=== PATIENT | female | born 1990 | race Caucasian/White ===

== ENCOUNTER 2020-10-25 22:18 | Inpatient (IN) | payer BC ==
[2020-10-25] MEDS: Lactated Ringers 1,000 ML IV SCH ×2 (22:25→23:17)
[2020-10-25] MEDS ORDERED: Lidocaine 1% 50 ML MDV INJECT PRN (22:39)
[2020-10-25] MEDS ORDERED: Sodium Chloride 0.9% 2.5 ML Syringe FLUSH PRN (22:39)
[2020-10-25] MEDS ORDERED: Tranexamic Acid 1,000 MG in Sodium Chloride 0.9% 100 ML IV PRN (22:39)
[2020-10-25] MEDS ORDERED: Nalbuphine 10 MG/1 ML Vial IVPUSH PRN (22:39)
[2020-10-25] MEDS ORDERED: Carboprost Tromethamine 250 MCG/1 ML Amp IM PRN (22:39)
[2020-10-25] MEDS ORDERED: Methylergonovine 0.2 MG/1 ML Amp IM PRN (22:39)
[2020-10-25] MEDS ORDERED: Misoprostol 200 MCG Tab PO PRN (22:39)
[2020-10-25] MEDS ORDERED: Butorphanol 1 MG/ML SDV IVPUSH PRN (22:39)
[2020-10-25] MEDS ORDERED: Sodium Chloride 0.9% 10 ML Syringe FLUSH PRN (22:39)
[2020-10-25] MEDS ORDERED: Water For Irrigation,Sterile 1,000 ML Container IRR PRN (22:39)
[2020-10-25] MEDS ORDERED: Sodium Chloride 0.9% 10 ML SDV IV PRN (22:39)
[2020-10-25] MEDS ORDERED: Oxytocin/0.9 % Sodium Chloride 30 UNIT/500 ML BAG IV SCH (22:45)
[2020-10-25] MEDS ORDERED: Oxytocin/0.9 % Sodium Chloride 30 UNIT/500 ML BAG ONE (23:03)
[2020-10-25] MEDS ORDERED: Bupivicaine/fentaNYL/NS 250 ML ONE (23:11)
[2020-10-25] MEDS ORDERED: Ondansetron 4 MG/2 ML SDV IVPUSH PRN (23:16)
[2020-10-25] MEDS ORDERED: Lidocaine 1% 50 ML MDV ONE (23:35)
--- NOTE | 2020-10-26 00:40 | PCM.PREANE ---
Preanesthetic Assessment - Anesthesia/Transfusion/Family Hx Anesthesia History: No Prior Anesthesia Family History of Anesthesia Reaction: No - Review of Systems General: No Symptoms, Other (Patient feels warm to touch and cheeks duran. States she has just been feeling different all day.) Pulmonary: No Symptoms Cardiovascular: No Symptoms Gastrointestinal: No Symptoms Neurological: No Symptoms Other: Reports: None (Denies any personal or family hx of bleeding or clotting problems) - Physical Assessment ASA Class: 2 Mental Status: Alert & Oriented x3 Airway Class: Mallampati = 3 Dentition: Reports: Normal Dentition ROM/Head Extension: Full - Lab Values: Laboratory Last Values WBC 25.93 K/uL (4.0-11.0) H 10/25/20 22:46 RBC 3.73 M/uL (4.30-5.90) L 10/25/20 22:46 Hgb 11.7 g/dL (12.0-16.0) L 10/25/20 22:46 Hct 34.4 % (36.0-46.0) L 10/25/20 22:46 MCV 92.2 fL (80.0-98.0) 10/25/20 22:46 MCH 31.4 pg (27.0-32.0) 10/25/20 22:46 MCHC 34.0 g/dL (31.0-37.0) 10/25/20 22:46 RDW Std Deviation 41.4 fl (28.0-62.0) 10/25/20 22:46 RDW Coeff of Alo 12 % (11.0-15.0) 10/25/20 22:46 Plt Count 332 K/uL (150-400) 10/25/20 22:46 MPV 10.50 fL (7.40-12.00) 10/25/20 22:46 Nucleated RBC % 0.0 /100WBC 10/25/20 22:46 Nucleated RBCs # 0 K/uL 10/25/20 22:46 Blood Type B POSITIVE 10/25/20 22:55 Antibody Screen NEGATIVE 10/25/20 22:55 - Allergies Allergies/Adverse Reactions: Allergies Allergy/AdvReac Type Severity Reaction Status Date / Time No Known Allergies Allergy Verified 10/25/20 14:22 - Acknowledgements Anesthesia Type Planned: Epidural Pt an Appropriate Candidate for the Planned Anesthesia: Yes Alternatives and Risks of Anesthesia Discussed w Pt/Guardian: Yes Pt/Guardian Understands and Agrees with Anesthesia Plan: Yes PreAnesthesia Questionnaire - HOME MEDS Home Medications: Home Meds Omeprazole Magnesium [Prilosec Otc] 40 mg PO 10/25/20 [History] - CURRENT (IN HOUSE) MEDS Current Meds: Current Medications Butorphanol Tartrate (Stadol) 1 mg IVPUSH Q1H PRN PRN Reason: Pain Carboprost Tromethamine (Hemabate Ds) 250 mcg IM ASDIRECTED PRN PRN Reason: Post Hemorrhage Oxytocin/Sodium Chloride (Oxytocin 30 Unit/500 Ml-Ns) 30 unit in 500 mls @ 999 mls/hr IV TITRATE LYNETTE Tranexamic Acid 1,000 mg/ (Sodium Chloride) 110 mls @ 660 mls/hr IV ONETIME PRN PRN Reason: Bleeding Lactated Ringer's (Ringers, Lactated) 1,000 mls @ 150 mls/hr IV ASDIRECTED [facility] Last Admin: 10/25/20 23:17 Dose: 999 mls/hr Documented by: Lidocaine HCl (Xylocaine 1%) 50 ml INJECT ONETIME PRN PRN Reason: Laceration repair Methylergonovine Maleate (Methergine) 0.2 mg IM ASDIRECTED PRN PRN Reason: Post Hemorrhage Misoprostol (Cytotec) 200 mcg PO ONETIME PRN PRN Reason: Post Hemorrhage Nalbuphine HCl (Nubain) 10 mg IVPUSH Q1H PRN PRN Reason: Pain (severe 7-10) Ondansetron HCl (Zofran) 4 mg IVPUSH Q6H PRN PRN Reason: Nausea/Vomiting Sodium Chloride (Saline Flush) 10 ml FLUSH ASDIRECTED PRN PRN Reason: Keep Vein Open Sodium Chloride (Saline Flush) 2.5 ml FLUSH ASDIRECTED PRN PRN Reason: Keep Vein Open Sodium Chloride (Normal Saline) 10 ml IV ASDIRECTED PRN PRN Reason: IV Use Sterile Water (Sterile Water For Irrigation) 1,000 ml IRR ASDIRECTED PRN PRN Reason: delivery Discontinued Medications Oxytocin/Sodium Chloride (Oxytocin 30 Unit/500 Ml-Ns) Confirm Administered Dose 30 unit in 500 mls @ as directed .ROUTE .STK-MED ONE Stop: 10/25/20 23:04 Fentanyl/Bupivacaine HCl (Fentanyl/Bupivacaine/Ns 2 Mcg-0.125% 250 Ml) Confirm Administered Dose 250 mls @ as directed .ROUTE .STK-MED ONE Stop: 10/25/20 23:12 Lidocaine HCl (Xylocaine 1%) Confirm Administered Dose 50 ml .ROUTE .STK-MED ONE Stop: 10/25/20 23:36
[2020-10-26] MEDS: Lactated Ringers 1,000 ML IV SCH ×2 (02:51→08:35)
[2020-10-26] MEDS ORDERED: Bupivacaine 0.5% 10 ML SDV ONE (04:37)
[2020-10-26] MEDS ORDERED: DEXTROSE 5% IV SCH ×4 (10:00)
[2020-10-26] MEDS ORDERED: SODIUM CHLORIDE 0.9% IV SCH (10:00)
[2020-10-26] MEDS ORDERED: WATER IV SCH ×4 (10:00)
[2020-10-26] MEDS ORDERED: GENTAMICIN IV SCH ×5 (10:00)
[2020-10-26] MEDS: Ampicillin 2 GM in Sodium Chloride 0.9% 100 ML IV SCH ×3 (10:02→22:01)
[2020-10-26] MEDS ORDERED: Misoprostol 200 MCG Tab ONE (11:16)
[2020-10-26] MEDS ORDERED: Acetaminophen 500 MG Tab PO PRN (11:38)
[2020-10-26] MEDS ORDERED: Witch Hazel Medicated Pads 40/Jar TOP PRN (11:38)
[2020-10-26] MEDS ORDERED: Bisacodyl 10 MG Supp RECTAL PRN (11:38)
[2020-10-26] MEDS ORDERED: Benzocaine/Menthol 20%-0.5% Spray 78 GM Cannister TOP PRN (11:38)
[2020-10-26] MEDS ORDERED: Lanolin 100% Cream 7 GM Tube TOP PRN (11:38)
[2020-10-26] MEDS ORDERED: oxyCODONE 5 MG Tab PO PRN (11:38)
[2020-10-26] MEDS ORDERED: GENTAMICIN IV ONE ×2 (11:42)
[2020-10-26] MEDS ORDERED: WATER IV ONE ×2 (11:42)
[2020-10-26] MEDS ORDERED: DEXTROSE 5% IV ONE ×2 (11:42)
--- NOTE | 2020-10-26 11:48 | PCM.DEL ---
L & D Note - General Info Date of Service: 10/26/20 Mother's Due Date: 10/29/20 - Delivery Note Labor: Spontaneous Delivery Outcome: Livebirth Infant Delivery Method: Spontaneous Vaginal Delivery-Single Presentation: Vertex Nuchal Cord: None Anesthesia Type: Epidural Amniotic Fluid Description: Clear Episiotomy Type: None Laceration: 1st Degree Suture type: Vicryl Suture size: 2-0 Placenta: Manual Removal Cord: 3 Vessels Estimated Blood Loss: 700 Resuscitation Needed: No Score 1 min: 9 Score 5 min: 9 Post Delivery Events: Hemorrhage (given 1000mcg misoprostol per rectum, 200mcg methergine IM), Other (see below) (cord avulsion) Delivery Comments (Free Text/Narrative):: Live male infant, En, weight pending - General Info Date of Service: 10/26/20 - Patient Data Weight - Most Recent: 98.883 kg Lab Results Last 24 Hours: Laboratory Results - last 24 hr 10/25/20 10/25/20 Range/Units 22:46 22:55 WBC 25.93 H (4.0-11.0) K/uL RBC 3.73 L (4.30-5.90) M/uL Hgb 11.7 L (12.0-16.0) g/dL Hct 34.4 L (36.0-46.0) % MCV 92.2 (80.0-98.0) fL MCH 31.4 (27.0-32.0) pg MCHC 34.0 (31.0-37.0) g/dL RDW Std Deviation 41.4 (28.0-62.0) fl RDW Coeff of Alo 12 (11.0-15.0) % Plt Count 332 (150-400) K/uL MPV 10.50 (7.40-12.00) fL Nucleated RBC % 0.0 /100WBC Nucleated RBCs # 0 K/uL Blood Type B POSITIVE Antibody Screen NEGATIVE Med Orders - Current: Current Medications Acetaminophen (Tylenol Extra Strength) 1,000 mg PO Q6H PRN PRN Reason: Pain Benzocaine/Menthol (Dermoplast Pain Relief 20%-0.5% [place]) 78 gm TOP ASDIRECTED PRN PRN Reason: Perineal Comfort Measure Bisacodyl (Dulcolax) 10 mg RECTAL ONETIME PRN PRN Reason: Constipation Docusate Sodium (Colace) 100 mg PO BID PRN PRN Reason: Constipation Emollient Ointment (Lansinoh Hpa) 0 gm TOP ASDIRECTED PRN PRN Reason: Sore Nipples Oxytocin/Sodium Chloride (Oxytocin 30 Unit/500 Ml-Ns) 30 unit in 500 mls @ 999 mls/hr IV TITRATE [facility] Last Admin: 10/26/20 11:25 Dose: 999 mls/hr Documented by: Lactated Ringer's (Ringers, Lactated) 1,000 mls @ 150 mls/hr IV ASDIRECTED [facility] Last Admin: 10/26/20 08:35 Dose: 150 mls/hr Documented by: Ampicillin Sodium 2 gm/ Sodium (Chloride) 100 mls @ 200 mls/hr IV Q6H [facility] Stop: 10/27/20 09:31 Last Admin: 10/26/20 10:02 Dose: 200 mls/hr Documented by: Gentamicin Sulfate 495 mg/ (Dextrose/Water) 100 mls @ 200 mls/hr IV ONETIME ONE Stop: 10/26/20 12:10 Ibuprofen (Motrin) 800 mg PO Q8H PRN PRN Reason: Pain Methylergonovine Maleate (Methergine) 0.2 mg IM ASDIRECTED PRN PRN Reason: Post Hemorrhage Misoprostol (Cytotec) 200 mcg PO ONETIME PRN PRN Reason: Post Hemorrhage Ondansetron HCl (Zofran) 4 mg IVPUSH Q6H PRN PRN Reason: Nausea/Vomiting Oxycodone HCl (Oxycodone) 5 mg PO Q2H PRN PRN Reason: Pain Sodium Chloride (Saline Flush) 10 ml FLUSH ASDIRECTED PRN PRN Reason: Keep Vein Open Sodium Chloride (Saline Flush) 2.5 ml FLUSH ASDIRECTED PRN PRN Reason: Keep Vein Open Sodium Chloride (Normal Saline) 10 ml IV ASDIRECTED PRN PRN Reason: IV Use Sterile Water (Sterile Water For Irrigation) 1,000 ml IRR ASDIRECTED PRN PRN Reason: delivery Witch Isatu (Tucks) 1 pad TOP ASDIRECTED PRN PRN Reason: comfort care Discontinued Medications Bupivacaine HCl (Sensorcaine-Mpf 0.5%) Confirm Administered Dose 10 ml .ROUTE .[facility] ONE Stop: 10/26/20 04:38 Butorphanol Tartrate (Stadol) 1 mg IVPUSH Q1H PRN PRN Reason: Pain Carboprost Tromethamine (Hemabate Ds) 250 mcg IM ASDIRECTED PRN PRN Reason: Post Hemorrhage Gentamicin Sulfate (Pharmacy To Dose - Gentamicin) 5 dose .XX ASDIRECTED [facility] Stop: 10/26/20 09:31 Tranexamic Acid 1,000 mg/ (Sodium Chloride) 110 mls @ 660 mls/hr IV ONETIME PRN PRN Reason: Bleeding Oxytocin/Sodium Chloride (Oxytocin 30 Unit/500 Ml-Ns) Confirm Administered Dose 30 unit in 500 mls @ as directed .ROUTE .STK-MED ONE Stop: 10/25/20 23:04 Fentanyl/Bupivacaine HCl (Fentanyl/Bupivacaine/Ns 2 Mcg-0.125% 250 Ml) Confirm Administered Dose 250 mls @ as directed .ROUTE .STK-MED ONE Stop: 10/25/20 23:12 Gentamicin Sulfate 495 mg/ (Dextrose/Water) 112.375 mls @ 224.75 mls/hr IV Q24H LYNETTE Gentamicin Sulfate 495 mg/ (Dextrose/Water) 100 mls @ 200 mls/hr IV Q24H [facility]TE Lidocaine HCl (Xylocaine 1%) 50 ml INJECT ONETIME PRN PRN Reason: Laceration repair Lidocaine HCl (Xylocaine 1%) Confirm Administered Dose 50 ml .ROUTE .STK-MED ONE Stop: 10/25/20 23:36 Misoprostol (Cytotec) Confirm Administered Dose 800 mcg .ROUTE .STK-MED ONE Stop: 10/26/20 11:17 Nalbuphine HCl (Nubain) 10 mg IVPUSH Q1H PRN PRN Reason: Pain (severe 7-10) - Problem List & Annotations (1) Vaginal delivery SNOMED Code(s): 324504275 Code(s): O80 - ENCOUNTER FOR FULL-TERM UNCOMPLICATED DELIVERY Status: Acute Current Visit: Yes (2) Chorioamnionitis, delivered, current hospitalization SNOMED Code(s): 20234594, 558443448 Code(s): O41.1290 - CHORIOAMNIONITIS, UNSP TRIMESTER, NOT APPLICABLE OR UNSP Status: Acute Current Visit: Yes (3) hemorrhage, delivered, current hospitalization SNOMED Code(s): 76659121, 972953155 Code(s): O72.1 - OTHER IMMEDIATE HEMORRHAGE Status: Acute Current Visit: Yes - Problem List Review Problem List Initiated/Reviewed/Updated: Yes - My Orders Last 24 Hours: My Active Orders 10/26/20 09:30 Ampicillin 2 gm Sodium Chloride 0.9% [Normal Saline] 100 ml IV Q6H 10/26/20 Lunch Regular Diet [DIET] 10/26/20 11:38 Patient Status [ADT] Routine May Shower [RC] ASDIRECTED Notify Provider Vital Signs [RC] ASDIRECTED Up ad Doreen [RC] ASDIRECTED Vital Signs [RC] PER UNIT ROUTINE Acetaminophen [Tylenol Extra Strength] 1,000 mg PO Q6H PRN Benzocaine/Menthol [Dermoplast Pain Relief 20%-0.5% [place]] 78 gm TOP ASDIRECTED PRN Docusate Sodium [Colace] 100 mg PO BID PRN Ibuprofen [Motrin] 800 mg PO Q8H PRN Lanolin [Lansinoh HPA] See Dose Instructions TOP ASDIRECTED PRN bisacodyL [Dulcolax] 10 mg RECTAL ONETIME PRN oxyCODONE 5 mg PO Q2H PRN witch Isatu [Tucks] 1 pad TOP ASDIRECTED PRN Assess Lochia [WOMSER] Per Unit Routine Assess Uterine Involution [WOMSER] Per Unit Routine Breast Pump [WOMSER] Per Unit Routine Peripheral IV Discontinue [OM.PC] Routine 10/26/20 11:39 Cooling Warming Measures [RC] ASDIRECTED Ice Therapy [OM.PC] Per Unit Routine Perineal Care [OM.PC] Per Unit Routine Sitz Bath [OM.PC] Per Unit Routine 10/26/20 11:40 BLOOD GAS VENOUS UMBILICAL [BG] Routine 10/26/20 11:42 Gentamicin 495 mg Dextrose 5% in Water 87.625 ml IV ONETIME 10/27/20 05:11 HEMOGLOBIN/HEMATOCRIT,HH [HEME] Timed - Assessment Assessment:: 29yo s/p at 39w4d - Plan Plan:: 1. Admit to unit for cares. 2. Chorioamnionitis - continue antibiotics for 24 hours . 3. Manual extraction of placenta - continue antibiotics for 24 hours . 4. COVID+ in November 5. Dispo - will likely stay for monitoring 48 hours , patient and partner aware.
[2020-10-26] MEDS: WATER IV SCH ×2 (13:17)
[2020-10-26] MEDS: GENTAMICIN IV SCH ×2 (13:17)
[2020-10-26] MEDS: DEXTROSE 5% IV SCH ×2 (13:17)
[2020-10-26] MEDS: Ibuprofen 800 MG Tab PO PRN (15:47)
--- NOTE | 2020-10-26 19:06 | OR ---
SURGEON: Avril Santoro MD DATE OF PROCEDURE: 10/26/2020 PREOPERATIVE DIAGNOSES: 1. 29-year-old, G1, P0, in labor. 2. Group B streptococcus negative. POSTOPERATIVE DIAGNOSES: 1. 29-year-old, G1, P1-0-0-1, at 39 weeks and 4 days' gestation. 2. Group B streptococcus negative. 3. Chorioamnionitis. 4. Cord avulsion with manual extraction of placenta. 5. hemorrhage. PROCEDURES: Spontaneous vaginal delivery, repair of first-degree perineal laceration, manual extraction of placenta. ANESTHESIA: Epidural. ESTIMATED BLOOD LOSS: 700 mL. FINDINGS: Live male in cephalic presentation. score 9 and 9 at one and five minutes respectively. Weight pending. First-degree perineal laceration. Cord avulsion during removal of placenta with subsequent manual extraction. Uterine atony. INDICATIONS: This is a 29-year-old, G1, P0, who presented at 39 weeks and 4 days' gestation in labor. Upon presentation, her cervix was found to be 6 to 7 cm dilated. She had spontaneous rupture of membranes with clear fluid noted. She received an epidural for pain control. She progressed to complete cervical dilation and began pushing. DESCRIPTION OF PROCEDURE: I was called to the room while the patient was pushing to assess position. The head was noted to be in right occiput posterior position and +2 station. Over the next two contractions, the 's head was manually rotated to right occiput anterior position and the patient continued pushing. heart rate was noted to be in the 160s to 170s and maternal heart rate was in the 120s. She was subjectively febrile and the diagnosis of chorioamnionitis was made. Ampicillin and gentamicin were ordered for antibiotic treatment of chorioamnionitis. Over the next 30 minutes, the patient pushed to +4 station and I was called to the room again. At that time, the head was noted to be +4 position. Over the next 30 minutes, the patient pushed and delivered a live male . Head was delivered followed by the shoulders and remainder of the body. The infant was placed on maternal abdomen. After approximately 60 seconds, cord clamped and cut. The perineum was inspected and a first-degree perineal laceration was noted. This was repaired to anatomy and hemostasis with 2-0 Vicryl. After 20 minutes of gentle traction on the cord, cord avulsion was noted. The placenta was then manually extracted. Uterine atony was noted. A bimanual exam was performed and the uterus cleared of clots. 1000 mcg of misoprostol was given per rectum. Uterine atony continued with again expression of clot during bimanual massage. Additional Pitocin was given in the IV and 0.2 mg of Methergine was given IM. At this time, the bleeding had slowed and the uterus was firm. The patient will be continued on ampicillin for 24 hours post due to chorioamnionitis and manual extraction of the placenta. Her bleeding will be monitored closely. The patient and infant tolerated the delivery well. [id number] / MODL /[id number] MTDD
[2020-10-27] MEDS: Ibuprofen 800 MG Tab PO PRN ×3 (01:08→17:34)
[2020-10-27] MEDS: Ampicillin 2 GM in Sodium Chloride 0.9% 100 ML IV SCH ×2 (02:58→09:20)
--- NOTE | 2020-10-27 07:01 | PCM48HPAN ---
Post Anesthesia Note - EVALUATION WITHIN 48HRS OF ANESTHETIC Vital Signs in Normal Range: Yes Patient Participated in Evaluation: Yes Respiratory Function Stable: Yes Airway Patent: Yes Cardiovascular Function Stable: Yes Hydration Status Stable: Yes Pain Control Satisfactory: Yes Nausea and Vomiting Control Satisfactory: Yes Mental Status Recovered: Yes Vital Signs: Last Vital Signs Temp 35.8 C L 10/27/20 04:14 Pulse 100 10/27/20 04:14 Resp 16 10/27/20 04:14 BP 106/66 10/27/20 04:14 Pulse Ox 97 10/27/20 04:14
--- NOTE | 2020-10-27 08:41 | PCM.PNPP ---
- General Info Date of Service: 10/27/20 Subjective Update: Doing well. Did not sleep much last night due to difficulty with . Denies dizziness with ambulation. Voiding without difficulty. Bleeding has decreased. Functional Status: Reports: Pain Controlled, Tolerating Diet, Ambulating, Urinating - Review of Systems General: Reports: No Symptoms HEENT: Reports: No Symptoms Pulmonary: Reports: No Symptoms Cardiovascular: Reports: No Symptoms Gastrointestinal: Reports: No Symptoms Genitourinary: Reports: No Symptoms Musculoskeletal: Reports: No Symptoms Skin: Reports: No Symptoms Neurological: Reports: No Symptoms Psychiatric: Reports: No Symptoms - Patient Data Vital Signs - Most Recent: Last Vital Signs Temp 36.6 C 10/27/20 07:49 Pulse 87 10/27/20 07:49 Resp 16 10/27/20 07:49 BP 99/54 L 10/27/20 07:49 Pulse Ox 98 10/27/20 07:49 Weight - Most Recent: 98.883 kg I&O - Last 24 Hours: Intake & Output 10/26/20 10/27/20 10/27/20 22:59 06:59 14:59 Intake Total 100 Output Total 600 Balance -500 Lab Results - Last 24 Hours: Laboratory Results - last 24 hr 10/26/20 10/27/20 Range/Units 10:48 05:55 Hgb 9.1 L (12.0-16.0) g/dL Hct 27.0 L (36.0-46.0) % Cord VBG pH 7.348 (7.25-7.45) Cord VBG Base Excess -9 (-10--2) Med Orders - Current: Current Medications Acetaminophen (Tylenol Extra Strength) 1,000 mg PO Q6H PRN PRN Reason: Pain Benzocaine/Menthol (Dermoplast Pain Relief 20%-0.5% [place]) 78 gm TOP ASDIRECTED PRN PRN Reason: Perineal Comfort Measure Last Admin: 10/26/20 13:40 Dose: 1 canister Documented by: Bisacodyl (Dulcolax) 10 mg RECTAL ONETIME PRN PRN Reason: Constipation Docusate Sodium (Colace) 100 mg PO BID PRN PRN Reason: Constipation Emollient Ointment (Lansinoh Hpa) 0 gm TOP ASDIRECTED PRN PRN Reason: Sore Nipples Last Admin: 10/26/20 13:40 Dose: 1 tube Documented by: Oxytocin/Sodium Chloride (Oxytocin 30 Unit/500 Ml-Ns) 30 unit in 500 mls @ 999 mls/hr IV TITRATE [facility] Last Admin: 10/26/20 11:25 Dose: 999 mls/hr Documented by: Lactated Ringer's (Ringers, Lactated) 1,000 mls @ 150 mls/hr IV ASDIRECTED [facility] Last Admin: 10/26/20 08:35 Dose: 150 mls/hr Documented by: Ampicillin Sodium 2 gm/ Sodium (Chloride) 100 mls @ 200 mls/hr IV Q6H [facility] Stop: 10/27/20 09:31 Last Admin: 10/27/20 02:58 Dose: 200 mls/hr Documented by: Gentamicin Sulfate 495 mg/ (Dextrose/Water) 100 mls @ 200 mls/hr IV Q24H [facility] Stop: 10/27/20 12:00 Last Admin: 10/26/20 13:17 Dose: 200 mls/hr Documented by: Ibuprofen (Motrin) 800 mg PO Q8H PRN PRN Reason: Pain Last Admin: 10/27/20 01:08 Dose: 800 mg Documented by: Methylergonovine Maleate (Methergine) 0.2 mg IM ASDIRECTED PRN PRN Reason: Post Hemorrhage Last Admin: 10/26/20 11:34 Dose: 0.2 mg Documented by: Misoprostol (Cytotec) 200 mcg PO ONETIME PRN PRN Reason: Post Hemorrhage Last Admin: 10/26/20 11:20 Dose: 200 mcg Documented by: Ondansetron HCl (Zofran) 4 mg IVPUSH Q6H PRN PRN Reason: Nausea/Vomiting Oxycodone HCl (Oxycodone) 5 mg PO Q2H PRN PRN Reason: Pain Sodium Chloride (Saline Flush) 10 ml FLUSH ASDIRECTED PRN PRN Reason: Keep Vein Open Sodium Chloride (Saline Flush) 2.5 ml FLUSH ASDIRECTED PRN PRN Reason: Keep Vein Open Sodium Chloride (Normal Saline) 10 ml IV ASDIRECTED PRN PRN Reason: IV Use Sterile Water (Sterile Water For Irrigation) 1,000 ml IRR ASDIRECTED PRN PRN Reason: delivery Witch Sindhu (Tucks) 1 pad TOP ASDIRECTED PRN PRN Reason: comfort care Last Admin: 10/26/20 13:39 Dose: 1 pad Documented by: Discontinued Medications Bupivacaine HCl (Sensorcaine-Mpf 0.5%) Confirm Administered Dose 10 ml .ROUTE .STK-MED ONE Stop: 10/26/20 04:38 Butorphanol Tartrate (Stadol) 1 mg IVPUSH Q1H PRN PRN Reason: Pain Carboprost Tromethamine (Hemabate Ds) 250 mcg IM ASDIRECTED PRN PRN Reason: Post Hemorrhage Gentamicin Sulfate (Pharmacy To Dose - Gentamicin) 5 dose .XX ASDIRECTED [facility] Stop: 10/26/20 09:31 Tranexamic Acid 1,000 mg/ (Sodium Chloride) 110 mls @ 660 mls/hr IV ONETIME PRN PRN Reason: Bleeding Oxytocin/Sodium Chloride (Oxytocin 30 Unit/500 Ml-Ns) Confirm Administered Dose 30 unit in 500 mls @ as directed .ROUTE .STK-MED ONE Stop: 10/25/20 23:04 Fentanyl/Bupivacaine HCl (Fentanyl/Bupivacaine/Ns 2 Mcg-0.125% 250 Ml) Confirm Administered Dose 250 mls @ as directed .ROUTE .STK-MED ONE Stop: 10/25/20 23:12 Gentamicin Sulfate 495 mg/ (Dextrose/Water) 100 mls @ 200 mls/hr IV ONETIME ONE Stop: 10/26/20 12:10 Lidocaine HCl (Xylocaine 1%) 50 ml INJECT ONETIME PRN PRN Reason: Laceration repair Lidocaine HCl (Xylocaine 1%) Confirm Administered Dose 50 ml .ROUTE .STK-MED ONE Stop: 10/25/20 23:36 Misoprostol (Cytotec) Confirm Administered Dose 800 mcg .ROUTE .STK-MED ONE Stop: 10/26/20 11:17 Last Admin: 10/26/20 11:20 Dose: 800 mcg Documented by: Nalbuphine HCl (Nubain) 10 mg IVPUSH Q1H PRN PRN Reason: Pain (severe 7-10) - Infant Interaction Infant Disposition, : [place] in Room with Family Infant Feeding: Attempted ; Nursed Fair/Poor, Bottle Fed Support Person: - Recovery Exam Fundal Tone: Firm Fundal Level: At Umbilicus Fundal Placement: Left Lochia Amount: Scant Lochia Color: Rubra/Red Other Perinuem Description: 1st degree laceration Bladder Status: Voiding Urinary Elimination: Voided Other Urinary Elimination, : straight catheter done at 11:20 - Exam General: Alert, Oriented Neck: Supple Lungs: Normal Respiratory Effort GI/Abdominal Exam: Soft, Non-Tender, No Distention, Other (fundus firm at umbilicus, midline) Skin: Warm, Dry, Intact Neurological: No New Focal Deficit Psy/Mental Status: Alert, Normal Affect, Normal Mood - Problem List & Annotations (1) Vaginal delivery SNOMED Code(s): 331491928 Code(s): O80 - ENCOUNTER FOR FULL-TERM UNCOMPLICATED DELIVERY Status: Acute Current Visit: Yes (2) Chorioamnionitis, delivered, current hospitalization SNOMED Code(s): 37738797, 393936605 Code(s): O41.1290 - CHORIOAMNIONITIS, UNSP TRIMESTER, NOT APPLICABLE OR UNSP Status: Acute Current Visit: Yes (3) hemorrhage, delivered, current hospitalization SNOMED Code(s): 95569521, 170635249 Code(s): O72.1 - OTHER IMMEDIATE HEMORRHAGE Status: Acute Current Visit: Yes - Problem List Review Problem List Initiated/Reviewed/Updated: Yes - My Orders Last 24 Hours: My Active Orders 10/26/20 09:30 Ampicillin 2 gm Sodium Chloride 0.9% [Normal Saline] 100 ml IV Q6H 10/26/20 Lunch Regular Diet [DIET] 10/26/20 11:38 Patient Status [ADT] Routine May Shower [RC] ASDIRECTED Notify Provider Vital Signs [RC] ASDIRECTED Up ad Doreen [RC] ASDIRECTED Vital Signs [RC] PER UNIT ROUTINE Acetaminophen [Tylenol Extra Strength] 1,000 mg PO Q6H PRN Benzocaine/Menthol [Dermoplast Pain Relief 20%-0.5% [place]] 78 gm TOP ASDIRECTED PRN Docusate Sodium [Colace] 100 mg PO BID PRN Ibuprofen [Motrin] 800 mg PO Q8H PRN Lanolin [Lansinoh HPA] See Dose Instructions TOP ASDIRECTED PRN bisacodyL [Dulcolax] 10 mg RECTAL ONETIME PRN oxyCODONE 5 mg PO Q2H PRN witch Sindhu [Tucks] 1 pad TOP ASDIRECTED PRN Assess Lochia [WOMSER] Per Unit Routine Assess Uterine Involution [WOMSER] Per Unit Routine Breast Pump [WOMSER] Per Unit Routine Peripheral IV Discontinue [OM.PC] Routine 10/26/20 11:39 Ice Therapy [OM.PC] Per Unit Routine Perineal Care [OM.PC] Per Unit Routine Sitz Bath [OM.PC] Per Unit Routine 10/26/20 12:00 Gentamicin 495 mg Dextrose 5% in Water 87.625 ml IV Q24H - Assessment Assessment:: 29yo s/p at 39w4d, PPD#1 - Plan Plan:: 1. Continue routine cares. 2. Chorioamnionitis - continue antibiotics for 24 hours . 3. Manual extraction of placenta - continue antibiotics for 24 hours . 4. COVID+ in August 5. Dispo - likely discharge home tomorrow.
[2020-10-27] MEDS: Docusate Sodium 100 MG Cap PO PRN ×2 (09:27→18:33)
[2020-10-27] MEDS: DEXTROSE 5% IV SCH ×2 (14:33)
[2020-10-27] MEDS: WATER IV SCH ×2 (14:33)
[2020-10-27] MEDS: GENTAMICIN IV SCH ×2 (14:33)
[2020-10-28] MEDS: Ibuprofen 800 MG Tab PO PRN (02:13)
--- NOTE | 2020-10-28 08:32 | PCM.PNPP ---
- General Info Date of Service: 10/28/20 Subjective Update: Doing well. Baby latching good, waiting for milk to come in. Denies fevers, dizziness, heavy bleeding. Functional Status: Reports: Pain Controlled, Tolerating Diet, Ambulating, Urinating - Review of Systems General: Reports: No Symptoms HEENT: Reports: No Symptoms Pulmonary: Reports: No Symptoms Cardiovascular: Reports: No Symptoms Gastrointestinal: Reports: No Symptoms Genitourinary: Reports: No Symptoms Musculoskeletal: Reports: No Symptoms Skin: Reports: No Symptoms Neurological: Reports: No Symptoms Psychiatric: Reports: No Symptoms - Patient Data Vital Signs - Most Recent: Last Vital Signs Temp 36.5 C 10/28/20 04:01 Pulse 92 10/28/20 04:01 Resp 16 10/28/20 04:01 BP 98/50 L 10/28/20 04:01 Pulse Ox 98 10/28/20 04:01 Weight - Most Recent: 98.883 kg Med Orders - Current: Current Medications Acetaminophen (Tylenol Extra Strength) 1,000 mg PO Q6H PRN PRN Reason: Pain Benzocaine/Menthol (Dermoplast Pain Relief 20%-0.5% [place]) 78 gm TOP ASDIRECTED PRN PRN Reason: Perineal Comfort Measure Last Admin: 10/26/20 13:40 Dose: 1 canister Documented by: Bisacodyl (Dulcolax) 10 mg RECTAL ONETIME PRN PRN Reason: Constipation Docusate Sodium (Colace) 100 mg PO BID PRN PRN Reason: Constipation Last Admin: 10/27/20 18:33 Dose: 100 mg Documented by: Emollient Ointment (Lansinoh Hpa) 0 gm TOP ASDIRECTED PRN PRN Reason: Sore Nipples Last Admin: 10/26/20 13:40 Dose: 1 tube Documented by: Oxytocin/Sodium Chloride (Oxytocin 30 Unit/500 Ml-Ns) 30 unit in 500 mls @ 999 mls/hr IV TITRATE [facility] Last Admin: 10/26/20 11:25 Dose: 999 mls/hr Documented by: Lactated Ringer's (Ringers, Lactated) 1,000 mls @ 150 mls/hr IV ASDIRECTED [facility] Last Admin: 10/26/20 08:35 Dose: 150 mls/hr Documented by: Ibuprofen (Motrin) 800 mg PO Q8H PRN PRN Reason: Pain Last Admin: 10/28/20 02:13 Dose: 800 mg Documented by: Methylergonovine Maleate (Methergine) 0.2 mg IM ASDIRECTED PRN PRN Reason: Post Hemorrhage Last Admin: 10/26/20 11:34 Dose: 0.2 mg Documented by: Misoprostol (Cytotec) 200 mcg PO ONETIME PRN PRN Reason: Post Hemorrhage Last Admin: 10/26/20 11:20 Dose: 200 mcg Documented by: Ondansetron HCl (Zofran) 4 mg IVPUSH Q6H PRN PRN Reason: Nausea/Vomiting Oxycodone HCl (Oxycodone) 5 mg PO Q2H PRN PRN Reason: Pain Sodium Chloride (Saline Flush) 10 ml FLUSH ASDIRECTED PRN PRN Reason: Keep Vein Open Sodium Chloride (Saline Flush) 2.5 ml FLUSH ASDIRECTED PRN PRN Reason: Keep Vein Open Sodium Chloride (Normal Saline) 10 ml IV ASDIRECTED PRN PRN Reason: IV Use Sterile Water (Sterile Water For Irrigation) 1,000 ml IRR ASDIRECTED PRN PRN Reason: delivery Witch Isatu (Tucks) 1 pad TOP ASDIRECTED PRN PRN Reason: comfort care Last Admin: 10/26/20 13:39 Dose: 1 pad Documented by: Discontinued Medications Bupivacaine HCl (Sensorcaine-Mpf 0.5%) Confirm Administered Dose 10 ml .ROUTE .STIBN Media-MED ONE Stop: 10/26/20 04:38 Butorphanol Tartrate (Stadol) 1 mg IVPUSH Q1H PRN PRN Reason: Pain Carboprost Tromethamine (Hemabate Ds) 250 mcg IM ASDIRECTED PRN PRN Reason: Post Hemorrhage Gentamicin Sulfate (Pharmacy To Dose - Gentamicin) 5 dose .XX ASDIRECTED STA Stop: 10/26/20 09:31 Tranexamic Acid 1,000 mg/ (Sodium Chloride) 110 mls @ 660 mls/hr IV ONETIME PRN PRN Reason: Bleeding Oxytocin/Sodium Chloride (Oxytocin 30 Unit/500 Ml-Ns) Confirm Administered Dose 30 unit in 500 mls @ as directed .ROUTE .STK-MED ONE Stop: 10/25/20 23:04 Fentanyl/Bupivacaine HCl (Fentanyl/Bupivacaine/Ns 2 Mcg-0.125% 250 Ml) Confirm Administered Dose 250 mls @ as directed .ROUTE .STK-MED ONE Stop: 10/25/20 23:12 Ampicillin Sodium 2 gm/ Sodium (Chloride) 100 mls @ 200 mls/hr IV Q6H [facility] Stop: 10/27/20 09:31 Last Admin: 10/27/20 09:20 Dose: 200 mls/hr Documented by: Gentamicin Sulfate 495 mg/ (Dextrose/Water) 100 mls @ 200 mls/hr IV ONETIME ONE Stop: 10/26/20 12:10 Gentamicin Sulfate 495 mg/ (Dextrose/Water) 100 mls @ 200 mls/hr IV Q24H [facility] Stop: 10/27/20 12:00 Last Admin: 10/27/20 14:33 Dose: Not Given Documented by: Lidocaine HCl (Xylocaine 1%) 50 ml INJECT ONETIME PRN PRN Reason: Laceration repair Lidocaine HCl (Xylocaine 1%) Confirm Administered Dose 50 ml .ROUTE .STK-MED ONE Stop: 10/25/20 23:36 Misoprostol (Cytotec) Confirm Administered Dose 800 mcg .ROUTE .STK-MED ONE Stop: 10/26/20 11:17 Last Admin: 10/26/20 11:20 Dose: 800 mcg Documented by: Nalbuphine HCl (Nubain) 10 mg IVPUSH Q1H PRN PRN Reason: Pain (severe 7-10) - Interaction Infant Disposition, : in Room with Family Feeding: Breastfed Infant; Nursed Well, Continues to Breastfeed Support Person: - Recovery Exam Fundal Tone: Firm Fundal Level: 1 Fingerbreadths Below Umbilicus Fundal Placement: Midline Lochia Amount: Scant Lochia Color: Rubra/Red Other Perinuem Description: 1st degree laceration Bladder Status: Voiding Urinary Elimination: Voided Other Urinary Elimination, : straight catheter done at 11:20 - Exam General: Alert, Oriented Neck: Supple Lungs: Normal Respiratory Effort GI/Abdominal Exam: Soft, Non-Tender, No Distention Extremities: No Pedal Edema Skin: Warm, Dry, Intact Neurological: No New Focal Deficit Psy/Mental Status: Alert, Normal Affect, Normal Mood - Problem List & Annotations (1) Vaginal delivery SNOMED Code(s): 639659480 Code(s): O80 - ENCOUNTER FOR FULL-TERM UNCOMPLICATED DELIVERY Status: Acute Current Visit: Yes (2) Chorioamnionitis, delivered, current hospitalization SNOMED Code(s): 61627084, 223688286 Code(s): O41.1290 - CHORIOAMNIONITIS, UNSP TRIMESTER, NOT APPLICABLE OR UNSP Status: Acute Current Visit: Yes (3) hemorrhage, delivered, current hospitalization SNOMED Code(s): 45515790, 770044744 Code(s): O72.1 - OTHER IMMEDIATE HEMORRHAGE Status: Acute Current Visit: Yes - Problem List Review Problem List Initiated/Reviewed/Updated: Yes - My Orders Last 24 Hours: My Active Orders 10/28/20 08:29 Ready for Discharge [RC] PER UNIT ROUTINE - Assessment Assessment:: 29yo s/p at 39w4d, PPD#2 - Plan Plan:: 1. Continue routine cares. 2. Chorioamnionitis - s/p antibiotics x24 hours. 3. Manual extraction of placenta - s/p antibiotics x24 hours. 4. COVID+ in August 11. Dispo - plan discharge home today, reviewed discharge instructions/precautions, all questions answered.
== END 2020-10-28 14:50 | disposition home or self-care (01) | DRG 560 ==
LOC: MW.OBCHECK 22:18 → MW.OB 22:18 → MW.OBCHECK 22:36 → MW.OB 22:36 → OBSVTOIN 10-26 10:50 → MW.OB 10-26 17:52
PROVIDERS: ADMIT Obstetrics & Gynecology; ATTEND Obstetrics & Gynecology
PROC: 10E0XZZ Delivery of Products of Conception, External Approach (ICD-10-PCS; principal; 2020-10-26)
PROC: 0HQ9XZZ Repair Perineum Skin, External Approach (ICD-10-PCS; 2020-10-26)
PROC: 10D17Z9 Manual Extraction of Products of Conception, Retained, Via Natural or Artificial Opening (ICD-10-PCS; 2020-10-26)
DX: O69.89X0 Labor and delivery complicated by other cord complications, not applicable or unspecified (principal); O41.1230 Chorioamnionitis, third trimester, not applicable or unspecified; O70.0 First degree perineal laceration during delivery; O72.1 Other immediate postpartum hemorrhage; Z86.16 Personal history of COVID-19; Z37.0 Single live birth; Z3A.39 39 weeks gestation of pregnancy
CPT/HCPCS: 36415; 51702; 59025; 59409; 82803; 85014; 85018; 85027; 86592; 86850; 86900; 86901; A9270-GY; J0290; J1580; J2001; J2210; J2590; J3010; J3490; J7050; J7060; J7120

== ENCOUNTER 2022-08-02 08:23 | Day surgery (SDC) | payer BC ==
[~2022-08-02 08:23] MED LIST: Lactated Ringers 1,000 ML IV SCH; Propofol 200 MG/20 ML SDV ONE; Sodium Chloride 0.9% 10 ML Syringe FLUSH PRN; Sodium Chloride 0.9% 2.5 ML Syringe FLUSH PRN; Sodium Chloride 0.9% 20 ML SDV IV PRN
== END 2022-08-02 11:05 | disposition home or self-care (01) ==
LOC: MW.SDS 08:23
PROVIDERS: ATTEND Surgery
DX: K29.50 Unspecified chronic gastritis without bleeding (principal); K31.89 Other diseases of stomach and duodenum; K21.9 Gastro-esophageal reflux disease without esophagitis; E66.9 Obesity, unspecified; Z68.38 Body mass index [BMI] 38.0-38.9, adult; Z86.16 Personal history of COVID-19; Z79.899 Other long term (current) drug therapy
CPT/HCPCS: 43239; 81025; J2704; J7120; 00731